=== PATIENT | male | born 1965 | race Caucasian/White ===

== ENCOUNTER → 2022-10-21 | Day surgery (SDC) | payer OTHER ==
[~2022-10-21] MED LIST: FENTANYL CITRATE/PF 100MCG/2 ML INJ ONE; LACTATED RINGER'S 1,000 ML ONE; LOSARTAN-HCTZ1 EAC1 PO; MIDAZOLAM HCL 2 MG/2 ML VIAL ONE; PHENTERMINE HCL15 MG; PREDNISONE5 MG PO; PROPOFOL IV EMULSION 10 MG/ML 20 ML VIAL ONE
[2022-10-21 15:12] VITALS: TEMP 97.6
[2022-10-21 15:25] VITALS: BP 115/74; PULSE 89; RESP 16; O2SAT 97
== END | disposition home or self-care (01) ==
LOC: OR 10:34
PROVIDERS: ATTEND Internal Medicine Gastroenterology
DX: K60.2 Anal fissure, unspecified (principal); D12.3 Benign neoplasm of transverse colon; K62.89 Other specified diseases of anus and rectum; K59.09 Other constipation; K64.8 Other hemorrhoids; Z71.3 Dietary counseling and surveillance; I10 Essential (primary) hypertension; Z71.89 Other specified counseling; E66.01 Morbid (severe) obesity due to excess calories; Z01.810 Encounter for preprocedural cardiovascular examination; Z79.899 Other long term (current) drug therapy; Z68.41 Body mass index [BMI] 40.0-44.9, adult
CPT/HCPCS: 45380; 45385; 93005; J2250; J2704; J3010; J7121; 45378; 45381